=== PATIENT | female | born 1990 | race Caucasian/White ===

== ENCOUNTER 2016-08-27 15:22 | Emergency (ER) | payer OTHER | END 2016-08-27 17:50 | disposition home or self-care (01) | LOC: ER 15:22 | DX: M54.5 Low back pain (principal); R10.32 Left lower quadrant pain; R11.0 Nausea; F31.9 Bipolar disorder, unspecified; F17.210 Nicotine dependence, cigarettes, uncomplicated; Z87.442 Personal history of urinary calculi | CPT/HCPCS: 36415; 96361; 96374; 96375; J1885 ==